=== PATIENT | female | born 1985 | race Caucasian/White ===

== ENCOUNTER 2025-05-23 07:22 | Day surgery (SDC) | payer BC ==
[~2025-05-23] VITALS: Ht 167.6 cm; Wt 85.4 kg
[~2025-05-23 07:22] MED LIST: METO25TA4 PO; VALS160T2 PO; ZOLO100T PO
[2025-05-23] MEDS ORDERED: ROCURONIUM BROMIDE 50MG/5ML VIAL As Ordered ONE (07:56)
[2025-05-23] MEDS ORDERED: LIDOCAINE 2% 100 MG/5 ML SDV (FOR ANES.) As Ordered ONE (07:56)
[2025-05-23] MEDS ORDERED: dexAMETHasone 4 MG/ML 1 ML VIAL As Ordered ONE (07:56)
[2025-05-23] MEDS ORDERED: SUGAMMADEX SODIUM 500 MG/5 ML VIAL As Ordered ONE (07:56)
[2025-05-23] MEDS ORDERED: ONDANSETRON 4MG/2ML VIAL As Ordered ONE (07:56)
[2025-05-23] MEDS ORDERED: MIDAZOLAM INJ 2 MG/2 ML VIAL As Ordered ONE (08:21)
[2025-05-23] MEDS: SCOPOLAMINE 1MG TRANSDERMAL PATCH TOP ONE (08:40)
[2025-05-23] MEDS ORDERED: LR 1,000 ML IV SCH (08:40)
[2025-05-23] MEDS ORDERED: SEMA1PEN2 (08:42)
[2025-05-23] MEDS: METOPROLOL SUCC. 25 MG *XL* TAB PO ONE (08:50)
[2025-05-23] MEDS ORDERED: ACETAMINOPHEN 1000MG/100ML IV BAG As Ordered ONE (11:00)
[2025-05-23] MEDS: HEPARIN SOD 5000 UNITS/ML 1 ML VIAL/SYRINGE As Ordered ONE (11:00)
[2025-05-23] MEDS: GENTAMICIN SULF 80 MG/2 ML VIAL As Ordered ONE (12:09)
[2025-05-23] MEDS ORDERED: MORPHINE 4 MG/ML 1 ML VIAL IV PRN (12:35)
[2025-05-23] MEDS ORDERED: TRAM50TA2 PO (12:42)
[2025-05-23] MEDS: HYDROMORPHONE HCL 0.5 MG/0.5 ML SYRINGE IV PRN (12:54)
[2025-05-23] MEDS: ONDANSETRON 4MG/2ML VIAL IV PRN (12:59)
[2025-05-23 13:38] VITALS: TEMP 96.8
[2025-05-23 14:26] VITALS: BP 138/84; O2SAT 97
== END 2025-05-23 14:25 | disposition home or self-care (01) ==
LOC: M SDC 07:22
PROVIDERS: ATTEND Plastic Surgery Surgery of the Hand
DX: T85.44XA Capsular contracture of breast implant, initial encounter (principal); Y81.2 Prosthetic and other implants, materials and accessory general- and plastic-surgery devices associated with adverse incidents; Z15.01 Genetic susceptibility to malignant neoplasm of breast; I10 Essential (primary) hypertension; G47.30 Sleep apnea, unspecified; Z79.899 Other long term (current) drug therapy; F41.9 Anxiety disorder, unspecified; F32.A Depression, unspecified; Z90.13 Acquired absence of bilateral breasts and nipples
CPT/HCPCS: 19380; 36415; 84134; 87070; 87075; 87205; 88300; 88302; J0131; J0665; J0666; J0688; J1100; J1171; J1580; J2250; J2405; J3010; L8600